=== PATIENT | female | born 1955 | race Two or more races ===

== ENCOUNTER → 2025-02-11 | Day surgery (SDC) | payer OTHER, MEDICAID ==
[~2025-02-11] VITALS: Ht 152.4 cm; Wt 61.2 kg
[~2025-02-11] MED LIST: APIX5TAB PO; ATOR20TA PO; GLYCOPYRROLATE 0.2 MG/ML 1ML VIAL ONE; HYDROmorphone HCL 2 MG/ML VL/or syr IV PRN; METF-489 PO; METO25TA93 PO; ONDANSETRON HCL 4 MG/2 ML VIAL IV ONE; ONDANSETRON HCL 4 MG/2 ML VIAL ONE; fentaNYL CITRATE 100 MCG/2 ML VL ONE
--- NOTE | 2025-02-11 14:04 | DVHHP2 ---
GI H&P Pre-Op Assessment Date: 02/11/25 Chief complaint: colon cancer screening HPI: per clinic note Past medical history: per clinic note Past surgical history: per clinic note Family history: per clinic note Physical exam: General: NAD, AAOX3 HEENT: PERRL, no scleral icterus, normal hearing, gums without lesions or bleeding, oropharynx clear without erythema or exudate. Neck: Supple without enlargement of the thyroid, or lymphadenopathy. Chest: Normal size and shape, no tenderness, lung mishra clear to auscultation and percussion, nonlabored breathing. Heart: RRR, no murmur Abdomen: non-distended, no tenderness to palpation, +BS, no hepatosplenomegaly Extremities: no edema Neurological: CN II-XII intact, sensation intact in all extremities, 5+ strength in all extremities Skin: No rashes, No jaundice Assessment: - colon cancer screening Plan: - Colonoscopy - Risks (bleeding, infection, perforation, reaction to sedation medications and cardiopulmonary arrest) and benefit of the procedure were explained to patient. Patient agrees to undergo the procedure. ROLA FORBES MD February 11, 2025 14:04
[2025-02-11 14:05] VITALS: PULSE 84; RESP 15; O2SAT 97
--- NOTE | 2025-02-11 14:06 | DVHDS2 ---
Physician Discharge Progress N Final Diagnosis: Diverticulosis, internal hemorrhoids Operations or Procedures: Operations or Procedures Colonoscopy Condition on Discharge: Good Disposition: Home Discharge Instructions: Diet: Regular Activity: No Restrictions, As Tolerated Medications: Resume previous home medications Follow Up Care: Discharge Statement: "Patient was advised to return to the ER or call 911 if any headaches, dizziness, shortness of breath, chest pain, abdominal pain, bleeding, fevers, or worsening of medical condition. Patient was counseled about treatment plan, medications, possible side effects, patientverbalized understanding. All questions were answered to the best of my ability. This discharge took greater then 30 minutes in planning, reviewing doc umentation, counseling the patient, and discussing with other team members." ROLA FORBES MD February 11, 2025 14:06
--- NOTE | 2025-02-11 14:06 | DVHOP2 ---
Operative Report DATE OF OPERATION: 02/11/25 PROCEDURE: Colonoscopy. PREOPERATIVE INDICATION: The patient is a 69 -year-old female with history of colon polyps undergoing colonoscopy for colon cancer screen. POSTOPERATIVE DIAGNOSES: 1. Diverticulosis in the left colon. 2. Internal hemorrhoids PROCEDURE PERFORMED BY: Binh Bobby M.D. SCOPE: Olympus videocolonoscope. ASA CLASS: 3 PREOPERATIVE MEDICATIONS: MAC with Dr Vogel PROCEDURE IN DETAIL: After obtaining an informed consent, the patient was placed on left lateral decubitus position. She was then sedated with the above medications. A rectal examination was performed that was normal. The colonoscope was then passed through the anus into the rectosigmoid and through the descending, transverse, and ascending colon up to the cecum with visualization of the appendiceal orifice, base of the cecum and the ileocecal valve. No mass or polyp was observed. There was diverticulosis in the left colon. There were internal hemorrhoids. The colonoscope was then withdrawn. The patient tolerated the procedure well without difficulty. WITHDRAWAL TIME: 6 minutes QUALITY OF THE PREP: [place] Bowel Prep score: 7 COMPLICATIONS : None SPECIMENS: None DISPOSITION: D/C to home PLAN: 1. Repeat colonoscopy in 10 years for colon cancer screening. BINH BOBBY MD February 11, 2025 14:06
[2025-02-11 14:40] VITALS: BP 110/67; PULSE 82; RESP 15; O2SAT 99
== END | disposition home or self-care (01) ==
LOC: GI 10:10
PROVIDERS: ATTEND Internal Medicine Gastroenterology
DX: K59.00 Constipation, unspecified (principal); K64.8 Other hemorrhoids; K57.30 Diverticulosis of large intestine without perforation or abscess without bleeding; K21.9 Gastro-esophageal reflux disease without esophagitis; E78.5 Hyperlipidemia, unspecified; E11.9 Type 2 diabetes mellitus without complications; G43.909 Migraine, unspecified, not intractable, without status migrainosus; I48.91 Unspecified atrial fibrillation; Z79.01 Long term (current) use of anticoagulants; Z98.891 History of uterine scar from previous surgery; Z79.84 Long term (current) use of oral hypoglycemic drugs; Z79.899 Other long term (current) drug therapy
CPT/HCPCS: 45378; 82962; J2405; J3010; J7030